=== PATIENT | female | born 1940 | race Caucasian/White ===

== ENCOUNTER 2017-02-05 16:27 | Observation (INO) | payer OTHER ==
[2017-02-05] MEDS ORDERED: NS 1,000 ML IV ONE (16:40)
[2017-02-05] MEDS ORDERED: ONDANSETRON 4 MG/2 ML VIAL IVP ONE (16:40)
[2017-02-05] MEDS ORDERED: ONDANSETRON 4 MG/2 ML VIAL ONE (16:41)
--- NOTE | 2017-02-05 16:41 | EDPHY ---
H & P Time Seen by Provider: 02/05/17 16:40 HPI/ROS: CHIEF COMPLAINT: Vomiting HISTORY OF PRESENT ILLNESS: This patient is a 76 year old female who presents to the Emergency Department complaining of persistent nausea and vomiting over the past five days. She reports associated lethargy worsening over that time as well. She has had difficulty tolerating food or drink and presents today because she is feeling extremely weak. She complains of mild dizziness; her family reports that she has needed help walking around so as not to fall. She denies abdominal pain, diarrhea, or fever or chills. No urinary complaints. Nobody else in her house is sick. She denies history of similar episodes in the past. REVIEW OF SYSTEMS: Constitutional: +generalized weakness, no fever, no chills Eyes: No visual changes ENT: No sore throat Respiratory: No cough, no shortness of breath Cardiac: No chest pain Gastrointestinal: As in HPI Genitourinary: No hematuria, no dysuria Musculoskeletal: No leg pain or swelling Skin: No rash Neurological: +dizziness, no headache, no numbness, no focal weakness Psychiatric: No depression Past Medical/Surgical History: 1. Thoracic aneurysm repair 2. Abdominal aortic aneurysm 3. COPD 4. CAD with CABG x3 5. History of lung cancer (2001) with s/p lobectomy Normal colonoscopy in 2016. Social History: Former smoker Daughter and at bedside Smoking Status: Former smoker Physical Exam: General Appearance: Alert, smiling, non-toxic appearing, no distress Eyes: Pupils equal and round, no conjunctival pallor or injection ENT, Mouth: Mucous membranes moist Neck: Normal inspection Respiratory: Lungs are clear to auscultation Cardiovascular: Regular rate and rhythm Gastrointestinal: Abdomen is soft and non- tender Neurological: A&O, nonfocal, normal gait Skin: Warm and dry, no rash Extremities: Nontender, no pedal edema Psychiatric: Mood and affect normal Constitutional: Initial Vital Signs Temperature (C) 36.7 C 02/05/17 16:30 Heart Rate 56 L 02/05/17 16:30 Respiratory Rate 16 02/05/17 16:30 Blood Pressure 150/72 H 02/05/17 16:30 O2 Sat (%) 95 02/05/17 16:30 O2 Delivery Mode Room Air Allergies/Adverse Reactions: No Known Allergies Allergy (Verified 02/05/17 17:34) Home Medications: Medication Instructions Recorded Ascorbic Acid [Vitamin C] 1,000 mg PO DAILY 03/20/15 Aspirin [Aspirin 81mg (*)] 81 mg PO DAILY18 03/20/15 Atorvastatin Calcium [Lipitor 40 40 mg PO DAILY18 03/20/15 mg (*)] Cholecalciferol Vit D3 [Vitamin D3 1,000 units PO DAILY 03/20/15 (*)] Herbals/Supplements -Info Only 1 ea PO DAILY 03/20/15 Losartan Potassium [Cozaar 50 mg 50 mg PO DAILY 03/20/15 (*)] Potassium Cl [Klor-Con 20 meq (*)] 20 meq PO DAILY 03/20/15 Raloxifene HCl [Evista] 60 mg PO DAILY 03/20/15 Naproxen Sod/Diphenhydramine 1 each PO HS PRN 02/05/17 [Aleve Pm Caplet] Ondansetron Odt [Zofran Odt 4 mg 4 mg PO Q4HRS PRN #30 tab 02/06/17 (*)] Medical Decision Making - Diagnostics EKG Interpretation: EKG interpreted by me reveals sinus bradycardia, rate 45; poor R wave progression; diffuse T wave abnormalities. Imaging Results: CT abd/pelvis: cholelithiasis, mild gastritis Imaging: Discussed imaging studies w/ jewel diameter gauger Radiologist ED Course/Re-evaluation: This 76 year old female presents with five days of nausea and vomiting and associated lethargy and generalized weakness. She is alert and well-appearing at time of exam. There are no abnormal findings on exam; abdomen is benign. I discussed with her the plan to proceed with labs and EKG here in the ED and ultimate admission given her generalized weakness and age. She is agreeable to this. IV established. 4mg IV Zofran and 1L IV NS administered. Labs reviewed and are unremarkable. Will proceed with CT of the abdomen and pelvisto r/o SBO. 1714: Consultation with Dr. Phillip Harding, hospitalist, who accepts admission. Differential Diagnosis: The differential diagnosis for the patient's nausea and vomiting included but was not limited to SBO, cholecystitis, severe dehydration, gastroenteritis, gastritis, appendicitis, and medication side effect. - Data Points Laboratory Results: Laboratory Results 02/05/17 16:45 02/05/17 16:45 Medications Given: Discontinued Medications Ascorbic Acid (Vitamin C) 1,000 mg PO DAILY [facility] Stop: 08/05/17 08:59 Last Admin: 02/06/17 11:20 Dose: 1,000 mg Cholecalciferol (Vitamin D) 1,000 units PO DAILY [facility] Stop: 08/05/17 08:59 Last Admin: 02/06/17 11:23 Dose: Not Given Enoxaparin Sodium (Lovenox) 40 mg SC DAILY [facility] Stop: 08/05/17 08:59 Last Admin: 02/06/17 11:23 Dose: Not Given Sodium Chloride (Ns) 1,000 mls @ 0 mls/hr IV ONCE ONE PRN Reason: Wide Open Stop: 02/05/17 16:41 Last Admin: 02/05/17 16:52 Dose: 1,000 mls Sodium Chloride (Ns) 1,000 mls @ 100 mls/hr IV CONT [facility] Stop: 08/04/17 18:29 Last Admin: 02/05/17 19:25 Dose: 1,000 mls Losartan Potassium (Cozaar) 50 mg PO DAILY [facility] Stop: 08/05/17 08:59 Last Admin: 02/06/17 11:23 Dose: Not Given Ondansetron HCl (Zofran) 4 mg IVP EDNOW ONE Stop: 02/05/17 16:41 Last Admin: 02/05/17 16:52 Dose: 4 mg Pantoprazole Sodium (Protonix) 40 mg PO DAILY [facility] Stop: 08/05/17 08:59 Last Admin: 02/06/17 11:24 Dose: Not Given Pantoprazole Sodium (Protonix) 40 mg PO ONCE ONE Stop: 02/05/17 19:54 Last Admin: 02/05/17 20:17 Dose: 40 mg Potassium Chloride (Klor-Con) 40 meq PO ONCE ONE Stop: 02/06/17 12:07 Last Admin: 02/06/17 12:16 Dose: 40 meq Raloxifene HCl (Evista) 60 mg PO DAILY [facility] Stop: 08/05/17 08:59 Last Admin: 02/06/17 11:24 Dose: Not Given Senna/Docusate Sodium (Senokot-S) 1 - 2 tab PO BID [facility]LOS PRN Reason: Protocol Stop: 08/04/17 20:59 Last Admin: 02/06/17 11:24 Dose: Not Given Departure - Departure Disposition: [facility] Acute Clinical Impression: Dehydration, Generalized weakness Vomiting Qualifiers: Vomiting type: unspecified Vomiting Intractability: non-intractable Nausea presence: with nausea Qualified Code(s): R11.2 - Nausea with vomiting, unspecified Condition: Fair Report Scribed for: Margarita Souza Report Scribed by: Sheba Guo Date of Report: 02/05/17 Time of Report: 16:41 Physician Review and Approval Statement: 02/05/17 16:41 Portions of this note were transcribed by a medical chemist. I personally performed a history, physical exam, medical decision making, and confirmed accuracy of information the transcribed note.
[2017-02-05 16:53] LABS: % IMMATURE GRANULYOCYTES 0.5 % (0.0-1.1); ABSOLUTE IMMATURE GRANULOCYTES 0.03 10^3/uL (0.00-0.10); ADD DIFF? NO; ADD MORPH? NO; ADD SCAN? NO; ATYPICAL LYMPHOCYTE FLAG 10 (0-99); FRAGMENT RBC FLAG 0 (0-99); HEMATOCRIT 42.4 % (38.0-47.0); HEMOGLOBIN 14.1 g/dL (12.6-16.3); LEFT SHIFT FLG 0 (0-99); LIPEMIA HEMOLYSIS FLAG 80 (0-99); MEAN CELL HEMOGLOBIN 31.5 pg (27.9-34.1); MEAN CELL HEMOGLOBIN CONCENTR. 33.3 g/dL (32.4-36.7); MEAN CELL VOLUME 94.6 fL (81.5-99.8); MEAN PLATELET VOLUME 8.7 fL (8.7-11.7); PLATELET CLUMPS FLAG 0 (0-99); PLATELET COUNT 396 10^3/uL (150-400); RED BLOOD CELL COUNT 4.48 10^6/uL (4.18-5.33); RED CELL DISTRIBUTION WIDTH 13.2 % (11.5-15.2)
--- NOTE | 2017-02-05 17:03 | CPEKG ---
Heart Rate: 45 RR Interval: 1333 P-R Interval: 192 QRSD Interval: 88 QT Interval: 524 QTC Interval: 454 P [place]: 0 QRS [place]: 14 T Wave [place]: -14 EKG Severity - ABNORMAL ECG - EKG Impression: SINUS BRADYCARDIA EKG Impression: PROBABLE LEFT ATRIAL ABNORMALITY EKG Impression: BORDERLINE R WAVE PROGRESSION, ANTERIOR LEADS EKG Impression: BORDERLINE T ABNORMALITIES, DIFFUSE LEADS Electronically Signed By: Margarita Souza 05-Feb-2017 21:05:30
[2017-02-05 17:06] LABS: ALANINE AMINOTRANSFERASE 36 IU/L (9-52); ALBUMIN 4.4 g/dL (3.5-5.0); ALKALINE PHOSPHATASE 68 IU/L (38-126); ANION GAP 9 mEq/L (8-16); ASPARTATE AMINOTRANSFERASE 32 IU/L (14-46); BILIRUBIN-CONJUGATED 0.2 mg/dL (0.0-0.5); BILIRUBIN-UNCONJUGATED 0.8 mg/dL (0.0-1.1); CALCIUM 9.8 mg/dL (8.5-10.4); CARBON DIOXIDE 28 mEq/l (22-31); CHLORIDE 99 mEq/L (97-110); CREATININE 0.8 mg/dL (0.6-1.0); GLOMERULAR FILTRATION RATE > 60; GLUCOSE 118 mg/dL (70-100); POTASSIUM 3.5 mEq/L (3.5-5.2); SODIUM 136 mEq/L (134-144); TOTAL PROTEIN 7.5 g/dL (6.3-8.2)
[2017-02-05] MEDS ORDERED: IOPAMIDOL (ISOVUE-300) 100 ML BTL ONE (17:22)
[2017-02-05] MEDS ORDERED: ONDANSETRON DISINTEGRATING 4 MG TAB PO PRN (18:28)
[2017-02-05] MEDS ORDERED: ACETAMINOPHEN 325 MG TAB PO PRN (18:28)
[2017-02-05] MEDS ORDERED: ONDANSETRON 4 MG/2 ML VIAL IVP PRN (18:28)
[2017-02-05] MEDS ORDERED: oxyCODONE IR 5 MG TAB PO PRN (18:28)
[2017-02-05] MEDS ORDERED: PROMETHAZINE HCL 25 MG TAB PO PRN (18:28)
[2017-02-05] MEDS ORDERED: NS 1,000 ML IV SCH (18:30)
[2017-02-05] MEDS ORDERED: LACTULOSE 20 GM/30 ML UDCUP PO PRN (18:47)
[2017-02-05] MEDS ORDERED: MAGNESIUM HYDROXIDE 30 ML UDCUP PO PRN (18:47)
[2017-02-05] MEDS ORDERED: POLYETHYLENE GLYCOL 3350 17 GM PKT PO PRN (18:47)
[2017-02-05] MEDS ORDERED: BISACODYL 10 MG SUPP PR PRN (18:47)
[2017-02-05] MEDS ORDERED: PANTOPRAZOLE SODIUM 40 MG TAB PO ONE (19:53)
[2017-02-05] MEDS: SENNOSIDES/DOCUSATE SODIUM TAB PO SCH (20:16)
--- NOTE | 2017-02-05 20:51 | GHP ---
[f rep st] HISTORY AND PHYSICAL DATE OF ADMISSION: 02/05/2017 CHIEF COMPLAINT: Nausea with vomiting. HISTORY: This is a 76-year-old female, who has a past medical history of coronary artery disease, s tatus post CABG many years ago, as well as known stable AAA and lung cancer, who presents with 5 day s of nausea and vomiting. The patient notes that her symptoms mostly are nausea with only small tesfaye unts of vomiting, but she has been having vomiting daily for the last 5 days. This has been associa jason with fatigue and generalized malaise, and per her daughter present at bedside, she has hardly be en out of bed over the last 5 days. She is also reportedly not really eating or drinking hardly any thing over the last 5 days. She notes that when she vomits, it mostly retching with a little bit of phlegm sometimes also coming out, but nothing substantial, and no evidence of blood or bile in her vomit. She has not had any changes in her bowel habits, and does admit that she has some component of chronic constipation, but does not feel that this has been worse than usual. She believes her la st bowel movement was yesterday. She has had no associated abdominal pain. She has not had similar symptoms in the past that she can recall. She denies fevers or chills. She denies any dysuria or other urinary changes. She has not had chest pain. It is noted since she has arrived in the hospit al that her heart rate has been in the 40s and in review of past records, it seems that her usual re sting heart rate is closer to the 90s. She, herself, notes she has been unaware of any change in he r heart rate, and has not had any recent medication changes. PAST MEDICAL HISTORY: 1. Coronary artery disease. 2. AAA, last measured at 3 x 3 cm. 3. Lung cancer. 4. Peripheral vascular disease. 5. Hypertension. 6. Hyperlipidemia. 7. Chronic constipation. PAST SURGICAL HISTORY: Includes CABG and lobectomy. FAMILY HISTORY: Reviewed and noncontributory. SOCIAL HISTORY: The patient has a remote tobacco use history. She is and has 3 children. Her and herself recently moved in with her daughter, who both are present at bedside. REVIEW OF SYSTEMS: A 10-point review of systems obtained, negative except as per HPI. MEDICATIONS: Include: 1. Naproxen. 2. . 3. Potassium. 4. Losartan. 5. Cholecalciferol. 6. Atorvastatin. 7. Atenolol. 8. Aspirin. 9. Ascorbic acid. ALLERGIES: No known drug allergies. PHYSICAL EXAMINATION: VITAL SIGNS: BP 159/63, heart rate 47, respiratory rate 12, O2 sat is 89% on room air. Temperature 36.3. GENERAL APPEARANCE: This is an elderly, female. She is aw matti and alert. She is in mild distress. EYES: Anicteric. HEENT: Oropharynx is clear. Mucous me mbranes are slightly dry. CARDIOVASCULAR: Bradycardic to the 40s. No murmurs, rubs, or gallops. PULMONARY: CTA bilaterally to anterior exam. Normal work of breathing. ABDOMEN: Soft, nontender. Bowel sounds are present. EXTREMITIES: No clubbing, cyanosis, or edema. SKIN: Warm dry well pe rfused. NEUROLOGIC/PSYCHIATRIC: Oriented, appropriate, pleasant. LABORATORY DATA: CBC is completely unremarkable. Chemistry notable for BUN of 24, down from 31 at last check. Her creatinine is 0.8, which appears stable. Glucose of 118. Lipase of 349. LFTs are normal. Abdominal CT, personally reviewed and interpreted, shows possible mild gastritis without evidence of small bowel obstruction, cholelithiasis without cholecystitis or bile duct dilatation, stable AAA c ompared to 10/23/2015, and constipation. EKG, personally reviewed and interpreted, shows sinus bradycardia with a rate of 45. There is diffu se T-wave flattening and borderline R-wave progression anteriorly. When compared to prior, there is no real change, other than the rate being slower. ASSESSMENT/PLAN: This is a 76-year-old female, past medical history of coronary artery disease, as well as abdominal aortic aneurysm and peripheral vascular disease, presenting with persistent nausea and vomiting for the last 5 days. 1. Nausea, vomiting. At this point, etiology is unclear. Differential would include primary gastr ointestinal etiology, such as gastritis noted on CT versus constipation versus less likely bowel isc hemia given no abdominal pain. We will provide proton pump inhibitor, check a lactate level, and st art bowel protocol. Other potential etiology would be symptomatic bradycardia given new onset heart rate in the 40s and associated nausea and vomiting. She does have a previous EKG with heart rate i n the 50s and also some associated pauses and was having similar symptoms at that time that were ult imately thought to be gastrointestinal in nature. At this point, we will cycle her troponins. Isamar tor her on telemetry and obtain an echocardiogram in the morning. We will also hold her atenolol. We will provide p.r.n. Zofran and Phenergan for symptomatic management. 2. Bradycardia. Again, as per above, she does have EKG changes consisting of new or worsening albert ycardia, last hospitalization with similar symptoms, and also noted to be bradycardic. Certainly, s he could be having some vagal, a fact of her chronic nausea, but also certainly her nausea could be related rather to her bradycardia, and at this point, it is difficult to determine which is which. Outside of nausea, she does not have any real gastrointestinal complaints to suggest a primary gastr ointestinal etiology, raising my concern for possible symptomatic bradycardia. Her woodwind instruments inspector is Dr. Hawthorne. Again, as per above, we will trend troponins and monitor on telemetry with repeat EKG i n the morning. 3. Coronary artery disease. We will continue her home medications, other than her atenolol. Again , ischemic workup as per above. 4. Abdominal aortic aneurysm. This has been stable on repeat imaging today compared to 1 year ago. 5. Hypertension. Continue her home medications, other than her atenolol, which will be held given her bradycardia. DISPOSITION: Observation status. Will likely need less than a 48-hour stay for evaluation and jerrica ora of above, though, given that her workup is not yet complete, she may, in fact, require inpati ent stay. Patient is new to my care. Old records reviewed and summarized as per HPI and Past Medical History. Care plan reviewed with ER physician, including plans for overnight observation. /[id number]/MODL
[2017-02-06 07:51] LABS: % IMMATURE GRANULYOCYTES 1.2 % (0.0-1.1); ABSOLUTE IMMATURE GRANULOCYTES 0.06 10^3/uL (0.00-0.10); ADD DIFF? NO; ADD MORPH? NO; ADD SCAN? NO; ATYPICAL LYMPHOCYTE FLAG 10 (0-99); FRAGMENT RBC FLAG 10 (0-99); HEMATOCRIT 35.4 % (38.0-47.0); HEMOGLOBIN 11.7 g/dL (12.6-16.3); LEFT SHIFT FLG 10 (0-99); LIPEMIA HEMOLYSIS FLAG 80 (0-99); MEAN CELL HEMOGLOBIN 31.8 pg (27.9-34.1); MEAN CELL HEMOGLOBIN CONCENTR. 33.1 g/dL (32.4-36.7); MEAN CELL VOLUME 96.2 fL (81.5-99.8); PLATELET CLUMPS FLAG 0 (0-99); PLATELET COUNT 336 10^3/uL (150-400); RED BLOOD CELL COUNT 3.68 10^6/uL (4.18-5.33); RED CELL DISTRIBUTION WIDTH 13.2 % (11.5-15.2)
[2017-02-06 08:14] LABS: ANION GAP 9 mEq/L (8-16); CALCIUM 8.7 mg/dL (8.5-10.4); CARBON DIOXIDE 24 mEq/l (22-31); CHLORIDE 104 mEq/L (97-110); CREATININE 0.8 mg/dL (0.6-1.0); GLOMERULAR FILTRATION RATE > 60; GLUCOSE 75 mg/dL (70-100); MAGNESIUM 1.9 mg/dL (1.6-2.3); POTASSIUM 3.3 mEq/L (3.5-5.2); SODIUM 137 mEq/L (134-144)
[2017-02-06 08:29] VITALS: BP 149/48; PULSE 48; RESP 24; TEMP 98.1; O2SAT 91
[2017-02-06] MEDS ORDERED: ENOXAPARIN 40 MG/0.4 ML SYR SC SCH (09:00)
[2017-02-06] MEDS ORDERED: ATENOLOL 50 MG TAB PO SCH (09:00)
[2017-02-06] MEDS ORDERED: RALOXIFENE HCL 60 MG TAB PO SCH (09:00)
[2017-02-06] MEDS ORDERED: CHOLECALCIFEROL VIT D3 1,000 UNITS TAB PO SCH (09:00)
[2017-02-06] MEDS ORDERED: LOSARTAN POTASSIUM 50 MG TAB PO SCH (09:00)
[2017-02-06] MEDS ORDERED: ASCORBIC ACID 500 MG TAB PO SCH (09:00)
[2017-02-06] MEDS ORDERED: PANTOPRAZOLE SODIUM 40 MG TAB PO SCH (09:00)
[2017-02-06 10:46] LABS: COLOR YELLOW; LEUKOCYTE ESTERASE,URINE TRACE (NEGATIVE); NITRITE,URINE NEGATIVE (NEGATIVE)
[2017-02-06 10:49] LABS: MUCUS TRACE /lpf (NONE-1+)
[2017-02-06 10:50] LABS: RBC,URINE NONE SEEN /hpf (0-3)
--- NOTE | 2017-02-06 11:16 | PDCARCONS ---
Cardiology Consult Reason for Consult: Bradycardia. Nausea Chief Complaint: Nausea Requesting Physician: Dr. Celeste Rodriguez History of Present Illness: 76 yr F with h/o CABG, AAA, R lung lobectomy due to lung Ca. Presented with nausea which has since resolved. Was noted to have HR in 40s, I was asked to comment if nausea and bradycardia were related. She denies chest pain. No syncope. History Information - Allergies/Home Medication List Allergies/Adverse Reactions: No Known Allergies Allergy (Verified 02/05/17 17:34) Home Medications: Ascorbic Acid [Vitamin C] 1,000 mg PO DAILY 03/20/15 [Last Taken 03/19/15 08:00] Aspirin [Aspirin 81mg (*)] 81 mg PO DAILY18 03/20/15 [Last Taken 03/19/15 18:00] Atorvastatin Calcium [Lipitor 40 mg (*)] 40 mg PO DAILY18 03/20/15 [Last Taken 03/19/15 18:00] Cholecalciferol Vit D3 [Vitamin D3 (*)] 1,000 units PO DAILY 03/20/15 [Last Taken 03/19/15 08:00] Herbals/Supplements -Info Only 1 ea PO DAILY 03/20/15 [Last Taken 03/19/15 08:00 ] Losartan Potassium [Cozaar 50 mg (*)] 50 mg PO DAILY 03/20/15 [Last Taken 08:00] Potassium Cl [Klor-Con 20 meq (*)] 20 meq PO DAILY 03/20/15 [Last Taken 08:00] Raloxifene HCl [Evista] 60 mg PO DAILY 03/20/15 [Last Taken 03/19/15 08:00] Naproxen Sod/Diphenhydramine [Aleve Pm Caplet] 1 each PO HS PRN 02/05/17 [Last Taken Unknown] I have personally reviewed and updated: family history, medical history, social history, surgical history - Past Medical History coronary artery disease, hypertension - Surgical History Reports: coronary bypass surgery - Social History Smoking Status: Former smoker Physical Exam Temp Pulse Resp BP Pulse Ox 36.7 C 48 L 24 H 149/48 H 91 L 02/06/17 08:28 02/06/17 08:28 02/06/17 08:28 02/06/17 08:28 02/06/17 08:28 Constitutional: no apparent distress, appears nourished Eyes: PERRL, EOMI Ears, Nose, Mouth, Throat: moist mucous membranes, hearing normal Cardiovascular: regular rate and rhythym, bradycardia Respiratory: no respiratory distress Neurologic: AAOx3 Psychiatric: interacting appropriately, not anxious, thought process linear Lab and Imaging 02/06/17 04:52 02/06/17 04:52 WBC 4.92 10^3/uL (3.80-9.50) 02/06/17 04:52 RBC 3.68 10^6/uL (4.18-5.33) L 02/06/17 04:52 Hgb 11.7 g/dL (12.6-16.3) L 02/06/17 04:52 Hct 35.4 % (38.0-47.0) L 02/06/17 04:52 MCV 96.2 fL (81.5-99.8) 02/06/17 04:52 MCH 31.8 pg (27.9-34.1) 02/06/17 04:52 MCHC 33.1 g/dL (32.4-36.7) 02/06/17 04:52 RDW 13.2 % (11.5-15.2) 02/06/17 04:52 Plt Count 336 10^3/uL (150-400) D 02/06/17 04:52 MPV 9.0 fL (8.7-11.7) 02/06/17 04:52 Neut % (Auto) 74.0 % (39.3-74.2) 02/06/17 04:52 Lymph % (Auto) 13.0 % (15.0-45.0) L 02/06/17 04:52 [place] % (Auto) 9.6 % (4.5-13.0) 02/06/17 04:52 Eos % (Auto) 1.6 % (0.6-7.6) 02/06/17 04:52 Baso % (Auto) 0.6 % (0.3-1.7) 02/06/17 04:52 Nucleat RBC Rel Count 0.0 % (0.0-0.2) 02/06/17 04:52 Absolute Neuts (auto) 3.64 10^3/uL (1.70-6.50) 02/06/17 04:52 Absolute Lymphs (auto) 0.64 10^3/uL (1.00-3.00) L 02/06/17 04:52 Absolute Monos (auto) 0.47 10^3/uL (0.30-0.80) 02/06/17 04:52 Absolute Eos (auto) 0.08 10^3/uL (0.03-0.40) 02/06/17 04:52 Absolute Basos (auto) 0.03 10^3/uL (0.02-0.10) 02/06/17 04:52 Absolute Nucleated RBC 0.00 10^3/uL (0-0.01) 02/06/17 04:52 Immature Gran % 1.2 % (0.0-1.1) H 02/06/17 04:52 Immature Gran # 0.06 10^3/uL (0.00-0.10) 02/06/17 04:52 VBG Lactic Acid 1.0 mmol/L (0.7-2.1) 02/05/17 21:32 Sodium 137 mEq/L (134-144) 02/06/17 04:52 Potassium 3.3 mEq/L (3.5-5.2) L 02/06/17 04:52 Chloride 104 mEq/L (97-110) 02/06/17 04:52 Carbon Dioxide 24 mEq/l (22-31) 02/06/17 04:52 Anion Gap 9 mEq/L (8-16) 02/06/17 04:52 BUN 20 mg/dL (7-23) 02/06/17 04:52 Creatinine 0.8 mg/dL (0.6-1.0) 02/06/17 04:52 Estimated GFR > 60 02/06/17 04:52 Glucose 75 mg/dL (70-100) 02/06/17 04:52 Calcium 8.7 mg/dL (8.5-10.4) 02/06/17 04:52 Phosphorus 3.2 mg/dL (2.5-4.5) 02/06/17 04:52 Magnesium 1.9 mg/dL (1.6-2.3) 02/06/17 04:52 Total Bilirubin 1.0 mg/dL (0.1-1.4) 02/05/17 16:45 Conjugated Bilirubin 0.2 mg/dL (0.0-0.5) 02/05/17 16:45 Unconjugated Bilirubin 0.8 mg/dL (0.0-1.1) 02/05/17 16:45 AST 32 IU/L (14-46) 02/05/17 16:45 ALT 36 IU/L (9-52) 02/05/17 16:45 Alkaline Phosphatase 68 IU/L (38-126) 02/05/17 16:45 Troponin I < 0.012 ng/mL (0-0.034) 02/06/17 10:15 Total Protein 7.5 g/dL (6.3-8.2) 02/05/17 16:45 Albumin 4.4 g/dL (3.5-5.0) 02/05/17 16:45 Lipase 349.0 IU/L (23-300) H 02/05/17 16:45 Urine Color YELLOW 02/06/17 03:05 Urine Appearance HAZY 02/06/17 03:05 Urine pH 5.0 (5.0-7.5) 02/06/17 03:05 Ur Specific [place] > 1.035 (1.002-1.030) H 02/06/17 03:05 Urine Protein NEGATIVE (NEGATIVE) 02/06/17 03:05 Urine Ketones TRACE (NEGATIVE) H 02/06/17 03:05 Urine Blood NEGATIVE (NEGATIVE) 02/06/17 03:05 Urine Nitrate NEGATIVE (NEGATIVE) 02/06/17 03:05 Urine Bilirubin NEGATIVE (NEGATIVE) 02/06/17 03:05 Urine Urobilinogen 2.0 EU (0.2-1.0) H 02/06/17 03:05 Ur Leukocyte Esterase TRACE (NEGATIVE) H 02/06/17 03:05 Urine RBC NONE SEEN /hpf (0-3) 02/06/17 03:05 Urine WBC 5-10 /hpf (0-3) H 02/06/17 03:05 Ur Epithelial Cells TRACE /lpf (NONE-1+) 02/06/17 03:05 Urine Mucus TRACE /lpf (NONE-1+) 02/06/17 03:05 Ur Culture Indicated? INDICATED (NI) H 02/06/17 03:05 Urine Glucose NEGATIVE (NEGATIVE) 02/06/17 03:05 Visualized and Interpreted EKG results: Yes EKG additional interpertation: Sinus bradycardia Telemetry: Sinus bradycardia A/P Assessment: 1. CAD sp CABG 2. Ex smoker - COPD, R lung lobectomy 3. Nausea 4. Sinus bradycardia Plan: 1. Has r/o for SD by serial troponin, no ECG changes s/o ACS 2. Has bradycardia, would hold BB at this time and do Cardionet as outpatient ( 2 weeks) + f.u. with Dr. Hawthorne following. d.w. her, her family and Dr. Rodriguez that if we want to continue BB, we may have to place a permanent pacemaker, but will defer that decision for 2-4 weeks 3. Hgb and K are low, she has recd at least 1.5 L of fluids - Dr. Rodriguez to address
--- NOTE | 2017-02-06 11:17 | CPEKG ---
Heart Rate: 48 RR Interval: 1250 P-R Interval: 152 QRSD Interval: 86 QT Interval: 460 QTC Interval: 411 P [place]: -56 QRS [place]: 1 T Wave [place]: -6 EKG Severity - OTHERWISE NORMAL ECG - EKG Impression: SINUS OR ECTOPIC ATRIAL BRADYCARDIA Electronically Signed By: Dasha Paulson 06-Feb-2017 19:33:58
[2017-02-06] MEDS: SENNOSIDES/DOCUSATE SODIUM TAB PO SCH (11:24)
[2017-02-06] MEDS ORDERED: POTASSIUM CL 20 MEQ TAB PO ONE (12:06)
--- NOTE | 2017-02-06 15:53 | GDS ---
[f rep st] DISCHARGE SUMMARY DISCHARGE DIAGNOSES: Include: 1. Nausea, etiology unclear. 2. Bradycardia. 3. Coronary artery disease. 4. Abdominal aortic aneurysm, clinically followed. 5. History of lung cancer. 6. Peripheral vascular disease. 7. Hypertension. 8. Hyperlipidemia. 9. Chronic constipation. HISTORY OF PRESENT ILLNESS: A 76-year-old female with a known history of coronary artery disease, swapnil delcid presents with complaints of nausea and vomiting. For details of the patient's initial presentati on, please see the history and physical dated 02/05/2017. CONSULTATIVE SERVICES: Include Cardiology. PROCEDURES: CT abdomen done 02/05/2017, shows no small bowel obstruction, mild gastritis, and a sta ble AAA. HOSPITAL COURSE BY ISSUE: 1. Nausea and vomiting. Suspected potentially gastroenteritis; however, the patient did not have d iarrhea. She was treated with fluid resuscitation, antiemetics, and had resolution of her nausea th e morning after presentation, tolerated a regular diet, and is being discharged home with rachel fairchild. Patient's objective workup was negative, including abdominal imaging, urinalysis, and basic la boratories. Urine culture was sent and is pending, but the patient had no urinary symptoms. The pa sarmad should follow with her primary care provider for recurrence of symptoms. 2. Bradycardia. The patient presented on moderate-dose atenolol with heart rates in the low 40s. We were concerned this may be contributing to her symptoms of nausea. The patient was seen by Dr. Manuel flynn from Cardiology, who recommended that we continue holding the beta delisa. This was done at adm ission. A 2-week quality assurance monitor will be placed post disposition. She will follow in the outpatien t setting with her invoice coder, Dr. Hawthorne. 3. Coronary artery disease. Again, patient did not have chest pain. She had normal troponins. We are continuing her cardiac regimen minus the atenolol at this time. She will be followed closely trey Hawthorne post disposition. MEDICATIONS AT THE TIME OF DISPOSITION: Please reference med rec printed on 02/06/2017. FOLLOWUP APPOINTMENTS: Include tomorrow to get set up with a 2-week quality assurance monitor, as well as an appointment with Dr. Hawthorne in the next 2-4 weeks. I spent greater than 30 minutes in the planning and coordination of this discharge. /[id number]/MODL
[2017-02-06] MEDS ORDERED: ATORVASTATIN CALCIUM 40 MG TAB PO SCH (18:00)
[2017-02-06] MEDS ORDERED: ASPIRIN 81 MG CHEWABLE TAB PO SCH (18:00)
== END 2017-02-06 12:36 | disposition home or self-care (01) ==
LOC: INTOOBSV 17:13 → F3E 18:07
PROVIDERS: ADMIT Internal Medicine; ATTEND Hospitalist
DX: R11.2 Nausea with vomiting, unspecified (principal); R00.1 Bradycardia, unspecified; I25.10 Atherosclerotic heart disease of native coronary artery without angina pectoris; I71.4 Abdominal aortic aneurysm, without rupture; I10 Essential (primary) hypertension; E78.5 Hyperlipidemia, unspecified; I73.9 Peripheral vascular disease, unspecified; J44.9 Chronic obstructive pulmonary disease, unspecified; Z95.1 Presence of aortocoronary bypass graft; Z85.118 Personal history of other malignant neoplasm of bronchus and lung; Z87.891 Personal history of nicotine dependence; Z90.2 Acquired absence of lung [part of]; K59.09 Other constipation
CPT/HCPCS: 74177; 93005; G0378; J1650; J2405; Q9967; 96374

== ENCOUNTER → 2017-02-10 | Outpatient (CLI) | payer OTHER | LOC: BHFA 13:15 | PROVIDERS: ATTEND Internal Medicine Cardiovascular Disease | DX: I48.91 Unspecified atrial fibrillation (principal); I25.810 Atherosclerosis of coronary artery bypass graft(s) without angina pectoris; I71.4 Abdominal aortic aneurysm, without rupture; E78.00 Pure hypercholesterolemia, unspecified ==

== ENCOUNTER 2017-02-15 02:23 | Inpatient (IN) | payer OTHER ==
--- NOTE | 2017-02-15 02:35 | CPEKG ---
Heart Rate: 129 RR Interval: 465 P-R Interval: 168 QRSD Interval: 72 QT Interval: 272 QTC Interval: 399 P [place]: 39 QRS [place]: 86 T Wave [place]: 224 EKG Severity - ABNORMAL ECG - EKG Impression: SINUS TACHYCARDIA EKG Impression: BORDERLINE RIGHT AXIS DEVIATION EKG Impression: NONSPECIFIC REPOL ABNORMALITY, DIFFUSE LEADS Electronically Signed By: Amado Antunez 15-Feb-2017 04:47:28
[2017-02-15] MEDS ORDERED: ACETAMINOPHEN 500 MG TAB PO ONE (02:50)
[2017-02-15 02:54] LABS: % IMMATURE GRANULYOCYTES 0.5 % (0.0-1.1); ABSOLUTE IMMATURE GRANULOCYTES 0.04 10^3/uL (0.00-0.10); ADD DIFF? NO; ADD MORPH? NO; ADD SCAN? NO; ATYPICAL LYMPHOCYTE FLAG 0 (0-99); FRAGMENT RBC FLAG 0 (0-99); HEMATOCRIT 39.9 % (38.0-47.0); LEFT SHIFT FLG 0 (0-99); LIPEMIA HEMOLYSIS FLAG 80 (0-99); MEAN CELL HEMOGLOBIN 31.4 pg (27.9-34.1); MEAN CELL HEMOGLOBIN CONCENTR. 32.6 g/dL (32.4-36.7); MEAN CELL VOLUME 96.4 fL (81.5-99.8); MEAN PLATELET VOLUME 8.9 fL (8.7-11.7); PLATELET CLUMPS FLAG 0 (0-99); PLATELET COUNT 318 10^3/uL (150-400); RED BLOOD CELL COUNT 4.14 10^6/uL (4.18-5.33); RED CELL DISTRIBUTION WIDTH 13.1 % (11.5-15.2)
[2017-02-15 03:03] LABS: INR 1.06 (0.83-1.16); PROTIME(PATIENT) 13.7 SEC (12.0-15.0)
[2017-02-15 03:04] LABS: APTT 26.2 SEC (23.0-38.0)
[2017-02-15 03:11] LABS: ANION GAP 12 mEq/L (8-16); BILIRUBIN,TOTAL 0.8 mg/dL (0.1-1.4); CALCIUM 9.5 mg/dL (8.5-10.4); CARBON DIOXIDE 27 mEq/l (22-31); CHLORIDE 100 mEq/L (97-110); CREATININE 0.7 mg/dL (0.6-1.0); GLOMERULAR FILTRATION RATE > 60; GLUCOSE 133 mg/dL (70-100); POTASSIUM 3.6 mEq/L (3.5-5.2); SODIUM 139 mEq/L (134-144)
[2017-02-15 03:23] LABS: TROPONIN I < 0.012 ng/mL (0-0.034)
--- NOTE | 2017-02-15 03:35 | EDPHY ---
H & P Time Seen by Provider: 02/15/17 02:31 HPI/ROS: HPI Cough, probable pneumonia, weakness. 76-year-old female by ambulance. This patient was at home. She lives with her in the basement of her daughter's house. Her son apparently had a pneumonia earlier in the week which she was hospitalized for him. He has had close contact with her. She then developed a cough about 3:00 p.m. this afternoon. This worsened through the evening. Her daughters reports that she had shaking chills and a worsening cough as of 3:00 a.m. this morning. She was too weak to get out of bed. Recent hospital admission here for nausea and vomiting. She had a short hospital stay. EMS reports room air pulse oximetry of 84%. ROS: Constitutional: As above. Eyes: No discharge. No changes in vision. ENT: No sore throat. No nasal congestion or rhinorrhea. Respiratory: As above. Cardiac: No chest pain, no palpitations. Gastrointestinal: No abdominal pain, no vomiting, no diarrhea. Genitourinary: No hematuria. No dysuria or increased frequency with urination. Musculoskeletal: No back pain. No neck pain. No myalgias or arthralgias. Skin: No rashes. Neurological: No headache. No focal weakness or altered sensation. Past medical history: Coronary artery disease, AAA with last measurement 3.3 cm , lung cancer, peripheral vascular disease, hyperlipidemia, hypertension, chronic constipation, recent admission for nausea, vomiting and dehydration as discussed. Social history: Nonsmoker. As above. Here with daughter and currently. Physical Exam: General Appearance: Alert, intermittent wet sounding cough. This patient is responding to questions appropriately and in full sentences. This patient appears well-hydrated and well-nourished. Eyes: Pupils equal and round no pallor or injection. No lid edema, erythema or injection. Respiratory: There are no retractions, rhonchi bilaterally upper and middle lung evans worse on the left. Tachypnea at 24. Cardiovascular: Regular rate and rhythm. Tachycardia. No murmur appreciated. Gastrointestinal: Abdomen is soft and nontender, no masses, bowel sounds normal. No focal tenderness at McBurney's point. No Torre sign. Neurological: Motor sensory function is grossly intact. Cranial nerves are normal. Gait is normal. Skin: Warm and dry, no rashes. Musculoskeletal: Neck is supple and nontender. Extremities are symmetrical. No significant lower extremity edema. All joints range without pain or impingement. Psychiatric: No agitation. No depression. Database: EKG: EKG time is 2:31 a.m.; EKG shows a narrow complex normal sinus tachycardia with ventricular rate of 129. Borderline right axis deviation. The [place], QRS, QT intervals are within normal limits. There are no ST-T wave changes indicative of ischemic or injury pattern. No evidence of right heart strain. Interpreted by me. Imaging: Chest x-ray PA and lateral postoperative changes involving the right dora thorax with associated right lung volume loss. Probable right middle lobe and left basilar infiltrative process. Interpreted by me. Procedures: Emergency department course: IV placed, vital signs reviewed, based on tachycardia and tachypnea patient identified for initial sepsis protocol. IV fluids started, chest x-ray, blood cultures, EKG obtained. 2:50 a.m., patient's initial venous lactate is 2.1. Severe sepsis protocol with appropriate fluid bolus initiated at this time. 3:35 a.m., discussed case with on-call hospitalist, Dr. Rodriguez. Hospital- acquired pneumonia unlikely. Will treat for community-acquired pneumonia with IV azithromycin and IV ceftriaxone. Patient's remaining emergency department course under my care has been uneventful. Tachycardia has improved with fluid bolus. She has not been hypotensive in the emergency department. She was admitted to the hospitalist service in stable condition. Differential Diagnosis: The differential diagnosis on this patient includes but is not limited to pneumonia, sepsis, congestive heart failure, reactive airway disease, bronchitis. This represents a partial list of diagnoses considered. These considerations are based on history, physical exam, past history, reassessment and diagnostic testing. Smoking Status: Former smoker Constitutional: Initial Vital Signs Temperature (C) 96 C H 02/15/17 02:34 Heart Rate 123 H 02/15/17 02:34 Respiratory Rate 16 02/15/17 02:34 Blood Pressure 138/95 H 02/15/17 02:34 O2 Sat (%) 92 02/15/17 02:34 O2 Delivery Mode Room Air O2 (L/minute) 2 Allergies/Adverse Reactions: No Known Allergies Allergy (Verified 02/15/17 02:34) Home Medications: Medication Instructions Recorded Ascorbic Acid [Vitamin C] 1,000 mg PO DAILY 03/20/15 Aspirin [Aspirin 81mg (*)] 81 mg PO DAILY18 03/20/15 Atorvastatin Calcium [Lipitor 40 40 mg PO DAILY18 03/20/15 mg (*)] Cholecalciferol Vit D3 [Vitamin D3 1,000 units PO DAILY 03/20/15 (*)] Herbals/Supplements -Info Only 1 ea PO DAILY 03/20/15 Losartan Potassium [Cozaar 50 mg 50 mg PO DAILY 03/20/15 (*)] Potassium Cl [Klor-Con 20 meq (*)] 20 meq PO DAILY 03/20/15 Raloxifene HCl [Evista] 60 mg PO DAILY 03/20/15 Naproxen Sod/Diphenhydramine 1 each PO HS PRN 02/05/17 [Aleve Pm Caplet] Ondansetron Odt [Zofran Odt 4 mg 4 mg PO Q4HRS PRN #30 tab 02/06/17 (*)] Medical Decision Making - Data Points Laboratory Results: Laboratory Results 02/15/17 02:44 02/15/17 02:44 02/15/17 02/15/17 02/15/17 02:44 02:44 02:44 WBC RBC Hgb Hct MCV MCH MCHC RDW Plt Count MPV Neut % (Auto) Lymph % (Auto) Caswell % (Auto) Eos % (Auto) Baso % (Auto) Nucleat RBC Rel Count Absolute Neuts (auto) Absolute Lymphs (auto) Absolute Monos (auto) Absolute Eos (auto) Absolute Basos (auto) Absolute Nucleated RBC Immature Gran % Immature Gran # PT 13.7 SEC SEC (12.0-15.0) INR 1.06 (0.83-1.16) APTT 26.2 SEC SEC (23.0-38.0) VBG Lactic Acid 2.1 mmol/L mmol/L (0.7-2.1) Sodium 139 mEq/L mEq/L (134-144) Potassium 3.6 mEq/L mEq/L (3.5-5.2) Chloride 100 mEq/L mEq/L (97-110) Carbon Dioxide 27 mEq/l mEq/l (22-31) Anion Gap 12 mEq/L mEq/L (8-16) BUN 20 mg/dL mg/dL (7-23) Creatinine 0.7 mg/dL mg/dL (0.6-1.0) Estimated GFR > 60 Glucose 133 mg/dL H mg/dL (70-100) Calcium 9.5 mg/dL mg/dL (8.5-10.4) Total Bilirubin 0.8 mg/dL mg/dL (0.1-1.4) Troponin I < 0.012 ng/mL ng/mL (0-0.034) NT-Pro-B Natriuret Pep 781 pg/mL H pg/mL (0-450) 02/15/17 02:44 WBC 7.76 10^3/uL 10^3/uL (3.80-9.50) RBC 4.14 10^6/uL L 10^6/uL (4.18-5.33) Hgb 13.0 g/dL g/dL (12.6-16.3) Hct 39.9 % % (38.0-47.0) MCV 96.4 fL fL (81.5-99.8) MCH 31.4 pg pg (27.9-34.1) MCHC 32.6 g/dL g/dL (32.4-36.7) RDW 13.1 % % (11.5-15.2) Plt Count 318 10^3/uL 10^3/uL (150-400) MPV 8.9 fL fL (8.7-11.7) Neut % (Auto) 91.6 % H % (39.3-74.2) Lymph % (Auto) 4.9 % L % (15.0-45.0) Caswell % (Auto) 2.2 % L % (4.5-13.0) Eos % (Auto) 0.4 % L % (0.6-7.6) Baso % (Auto) 0.4 % % (0.3-1.7) Nucleat RBC Rel Count 0.0 % % (0.0-0.2) Absolute Neuts (auto) 7.11 10^3/uL H 10^3/uL (1.70-6.50) Absolute Lymphs (auto) 0.38 10^3/uL L 10^3/uL (1.00-3.00) Absolute Monos (auto) 0.17 10^3/uL L 10^3/uL (0.30-0.80) Absolute Eos (auto) 0.03 10^3/uL 10^3/uL (0.03-0.40) Absolute Basos (auto) 0.03 10^3/uL 10^3/uL (0.02-0.10) Absolute Nucleated RBC 0.00 10^3/uL 10^3/uL (0-0.01) Immature Gran % 0.5 % % (0.0-1.1) Immature Gran # 0.04 10^3/uL 10^3/uL (0.00-0.10) PT INR APTT VBG Lactic Acid Sodium Potassium Chloride Carbon Dioxide Anion Gap BUN Creatinine Estimated GFR Glucose Calcium Total Bilirubin Troponin I NT-Pro-B Natriuret Pep Departure - Departure Disposition: [facility] Inpatient Acute Clinical Impression: Pneumonia, Sepsis, Hypoxia Referrals: LUIS M SHARMA [Primary Care Provider] - As per Instructions
[2017-02-15] MEDS ORDERED: AZITHROMYCIN IV 500 MG in D5W 250 ML IV ONE (03:39)
[2017-02-15] MEDS ORDERED: ONDANSETRON DISINTEGRATING 4 MG TAB PO PRN ×2 (03:39→11:37)
[2017-02-15] MEDS ORDERED: ONDANSETRON 4 MG/2 ML VIAL IVP PRN (03:39)
[2017-02-15] MEDS ORDERED: NS 1,000 ML IV ONE (03:39)
[2017-02-15] MEDS ORDERED: ALBUTEROL 3 ML DEYVIAL IH PRN (03:39)
[2017-02-15] MEDS ORDERED: ACETAMINOPHEN 325 MG TAB PO PRN (03:39)
[2017-02-15] MEDS ORDERED: NS 1,600 ML IV ONE (03:40)
[2017-02-15] MEDS: IPRATROPIUM/ALBUTEROL 3 ML DEYVIAL IH SCH ×4 (06:25→21:50)
--- NOTE | 2017-02-15 08:05 | GHP ---
[f rep st] HISTORY AND PHYSICAL DATE OF ADMISSION: 02/15/2017 CHIEF COMPLAINT: Cough and shortness of breath. HISTORY OF PRESENT ILLNESS: A 76-year-old female with a history of coronary artery disease and prev ious lung cancer, status post partial right lobectomy, who presented to the hospital on 02/05/2017 w ith nausea and vomiting, was treated for dehydration, kept off her beta delisa for bradycardia, and discharged home. The patient reports doing quite well post disposition with resolution of her naus ea, maintenance of her fluid status at home with oral intake, and then approximately 48 hours ago, d eveloped a cough with subjective chills and fevers. Patient notes that she has a son who was hospit alized with pneumonia and she believes that she contracted the same illness. The patient endorses a severe cough, only mildly productive of sputum, no hemoptysis, and associated shortness of breath. She denies any chest pain, pleuritic chest pain, any nausea or vomiting, any diarrhea, myalgias, ar thralgias, or rashes. PAST MEDICAL HISTORY: 1. Coronary artery disease, status post CABG. 2. AAA, medically monitored. 3. History of lung cancer, status post partial right lobectomy. 4. Peripheral vascular disease. 5. Hypertension. 6. Hyperlipidemia. SOCIAL HISTORY: Negative for tobacco. Very rare alcohol. No illicit drugs or marijuana. ADVANCED DIRECTIVES: The patient is full cor, full tube. Her and daughter would be her med ical decision makers. FAMILY HISTORY: Negative for lung cancer. REVIEW OF SYSTEMS: A 10-point review of systems is negative with the exception of that reported in the HPI. PHYSICAL EXAMINATION: VITAL SIGNS: Blood pressure today is 93/38, heart rate 110, respiratory rate 16, 95% on 2 L, 37.0. GENERAL: This is a very pleasant-appearing female who is exhausted, resting in bed. HEENT: Notable for moist mucous membranes. Eyes: Negative for any icterus. CARDIAC: P atient is tachycardic, but regular. PULMONARY: She has good respiratory effort. Hear crackles at the left lung base. Diminished breath sounds at the right base. GASTROINTESTINAL: Positive bowel sounds. ABDOMEN: Soft and nontender. MUSCULOSKELETAL: Negative for any lower extremity edema. S KIN: Negative for any rashes. NEUROLOGIC: She is alert and oriented x3. PSYCHIATRIC: She is ple asant and cooperative on interview and examination. DATA: Chest x-ray, which I personally reviewed and interpreted, shows a potential evolving left low er lobe infiltrate. Do see postoperative changes consistent with her partial lobectomy on the right . LABORATORY: White count 7.7, hematocrit 39.9, platelets of 318, creatinine is 0.7, BUN 12. Troponi n less than 0.012. ASSESSMENT AND PLAN: This is a 76-year-old female with a history of coronary artery disease present ing with cough. 1. Community-acquired pneumonia. Patient did have a sick contact in the home. She is unclear what the pathogen of her son's pneumonia was. We will empirically treat with ceftriaxone, azithromycin, check for influenza. I have sent blood cultures from the emergency department. We will send sputu m cultures from the floor and follow patient clinically. Have written for Mucinex, as well as inhal ed medications to assist with mucus clearance. 2. Tachycardia. Again, suspect this is related to her acute infection. Patient received IV fluids in the emergency department. If she is able to take good oral intake, I do not think she needs mor e. Of note, she historically has bradycardia and has been taken off her atenolol recently. We will continue to monitor while inpatient. 3. Coronary artery disease. Patient is not complaining of chest pain. We will continue her home c ardiac medications once reconciled, holding her antihypertensives until we see her blood pressures n ormalize. 4. Acute hypoxic respiratory failure secondary to community-acquired pneumonia. We will treat with antibiotics, inhaled medications, and Mucinex and follow clinically. 5. Prophylaxis with Lovenox. 6. Diet: Cardiac. 7. Disposition: I expect greater than 2 midnights as the patient is presenting with community-acqu ired pneumonia requiring oxygen supplementation and IV antibiotics. 8. I have discussed the case with the emergency room physician. Patient will be triaged to the [facility] floor for care. /[id number]/MODL
[2017-02-15] MEDS: guaiFENesin 600 MG TAB.ER PO SCH ×2 (08:17→21:25)
[2017-02-15] MEDS ORDERED: ENOXAPARIN 40 MG/0.4 ML SYR SC SCH (09:00)
[2017-02-15 11:48] LABS: COLOR YELLOW; LEUKOCYTE ESTERASE,URINE 2+ (NEGATIVE); NITRITE,URINE NEGATIVE (NEGATIVE)
--- NOTE | 2017-02-15 11:52 | HOSPPROG ---
Hospitalist Progress Note Assessment/Plan: # CAP - cont rocephin and azith - sputum cx pending # sepsis d/t CAP - resolved # CAD s/p CABG - cont asa/statin # a-fib: NSR now; cont eliquis, hold atenolol today, restart as soon as BP will tolerate # htn - holding meds today # lung ca s/p resection 2001 Subjective: still feels very tired; less coughing today Objective: Vital Signs Temp Pulse Resp BP Pulse Ox 37.0 C 64 18 106/46 L 95 02/15/17 07:07 02/15/17 10:35 02/15/17 10:35 02/15/17 08:00 02/15/17 10:35 02/14/17 02/15/17 02/16/17 05:59 05:59 05:59 Intake Total 1600 150 Output Total 250 Balance 1600 -100 PT 13.7 SEC (12.0-15.0) 02/15/17 02:44 INR 1.06 (0.83-1.16) 02/15/17 02:44 35 mins (from 11:17am to 11:52am) direct patient care and face to face time - Physical Exam Constitutional: no apparent distress, appears nourished ICD10 Worksheet Patient Problems: Problems Problem Status Onset Hypoxia Acute Pneumonia Acute Sepsis Acute CAD (coronary artery disease) Acute Dehydration Acute Emesis Acute Generalized weakness Acute Vomiting Acute
[2017-02-15 11:56] LABS: BACTERIA TRACE /hpf (NONE SEEN); MUCUS TRACE /lpf (NONE-1+); WBC,URINE 50-182 /hpf (0-3)
[2017-02-15] MEDS: ATORVASTATIN CALCIUM 40 MG TAB PO SCH (18:09)
[2017-02-15] MEDS: ASPIRIN 81 MG CHEWABLE TAB PO SCH (18:09)
[2017-02-15] MEDS: APIXABAN 5 MG TAB PO SCH (21:24)
[2017-02-16] MEDS: AZITHROMYCIN IV 500 MG in D5W 250 ML IV SCH (04:37)
[2017-02-16] MEDS: IPRATROPIUM/ALBUTEROL 3 ML DEYVIAL IH SCH ×4 (05:25→21:58)
[2017-02-16 05:32] LABS: % IMMATURE GRANULYOCYTES 1.1 % (0.0-1.1); ABSOLUTE IMMATURE GRANULOCYTES 0.09 10^3/uL (0.00-0.10); ADD DIFF? NO; ADD MORPH? NO; ADD SCAN? YES; ATYPICAL LYMPHOCYTE FLAG 0 (0-99); FRAGMENT RBC FLAG 0 (0-99); HEMATOCRIT 30.3 % (38.0-47.0); HEMOGLOBIN 9.9 g/dL (12.6-16.3); LIPEMIA HEMOLYSIS FLAG 80 (0-99); MEAN CELL HEMOGLOBIN 31.9 pg (27.9-34.1); MEAN CELL HEMOGLOBIN CONCENTR. 32.7 g/dL (32.4-36.7); MEAN CELL VOLUME 97.7 fL (81.5-99.8); MEAN PLATELET VOLUME 8.9 fL (8.7-11.7); PLATELET CLUMPS FLAG 10 (0-99); PLATELET COUNT 223 10^3/uL (150-400); RED CELL DISTRIBUTION WIDTH 13.5 % (11.5-15.2)
[2017-02-16 05:48] LABS: LEFT SHIFT FLG 150 (0-99)
[2017-02-16 06:20] LABS: SCAN NEGATIVE
[2017-02-16] MEDS: APIXABAN 5 MG TAB PO SCH ×2 (07:23→21:20)
[2017-02-16] MEDS: RALOXIFENE HCL 60 MG TAB PO SCH (07:23)
[2017-02-16] MEDS: guaiFENesin 600 MG TAB.ER PO SCH ×2 (07:23→21:20)
[2017-02-16] MEDS: POTASSIUM CL 20 MEQ TAB PO SCH (07:24)
[2017-02-16] MEDS ORDERED: NON-FORMULARY NEW DRUG (Atenolol/Chlorthalidone [Atenolol-Chlorthalidone 50-25] 1 EACH) PO SCH (09:00)
[2017-02-16] MEDS ORDERED: LOSARTAN POTASSIUM 50 MG TAB PO SCH (09:00)
[2017-02-16] MEDS ORDERED: ATENOLOL 50 MG TAB PO SCH (09:00)
[2017-02-16] MEDS ORDERED: CHLORTHALIDONE 25 MG TAB PO SCH (09:00)
--- NOTE | 2017-02-16 10:53 | HOSPPROG ---
Hospitalist Progress Note Assessment/Plan: # hypotension - will bolus with 1L; no evidence of shock at this point # CAP - cont rocephin and azith - sputum GS with GPC chains - check CXR tomorrow # sepsis d/t CAP - resolved # CAD s/p CABG - cont asa/statin # a-fib: back in a-fib - need to hold BB - cont eliquis # htn - holding meds today (received losartan this am) # anemia - worse today, recheck tomorrow # lung ca s/p resection 2001 Subjective: breathing feels better; stronger today Objective: Vital Signs Temp Pulse Resp BP Pulse Ox 36.3 C 85 16 88/41 L 88 L 02/16/17 08:00 02/16/17 08:00 02/16/17 08:00 02/16/17 10:45 02/16/17 08:06 Microbiology 02/15/17 11:20 - Final Sputum, Expectorated Laboratory Results 02/16/17 05:18 02/15/17 02/16/17 02/17/17 05:59 05:59 05:59 Intake Total 1600 750 Output Total 1230 Balance 1600 -480 PT 13.7 SEC (12.0-15.0) 02/15/17 02:44 INR 1.06 (0.83-1.16) 02/15/17 02:44 tele personally reviewed - Physical Exam Constitutional: no apparent distress, appears nourished Cardiovascular: no murmur, rub, or gallop, irregularly irregular Respiratory: no rales or rhonchi, respiratory distress (mild), other ( diminished R base sounds), No expiratory wheeze Gastrointestinal: normoactive bowel sounds, soft, non-tender abdomen, no palpable masses ICD10 Worksheet Patient Problems: Problems Problem Status Onset Chronic Disease Mgmt/Transitional Care Acute Emesis Acute CAD (coronary artery disease) Acute Dehydration Acute Vomiting Acute Generalized weakness Acute Pneumonia Acute Sepsis Acute Hypoxia Acute
[2017-02-16] MEDS: ATORVASTATIN CALCIUM 40 MG TAB PO SCH (17:36)
[2017-02-16] MEDS: ASPIRIN 81 MG CHEWABLE TAB PO SCH (17:36)
[2017-02-17 04:55] LABS: % IMMATURE GRANULYOCYTES 0.4 % (0.0-1.1); ABSOLUTE IMMATURE GRANULOCYTES 0.03 10^3/uL (0.00-0.10); ADD DIFF? NO; ADD MORPH? NO; ADD SCAN? NO; ATYPICAL LYMPHOCYTE FLAG 0 (0-99); FRAGMENT RBC FLAG 0 (0-99); HEMATOCRIT 34.5 % (38.0-47.0); HEMOGLOBIN 11.2 g/dL (12.6-16.3); LEFT SHIFT FLG 20 (0-99); LIPEMIA HEMOLYSIS FLAG 80 (0-99); MEAN CELL HEMOGLOBIN 31.7 pg (27.9-34.1); MEAN CELL HEMOGLOBIN CONCENTR. 32.5 g/dL (32.4-36.7); MEAN CELL VOLUME 97.7 fL (81.5-99.8); PLATELET CLUMPS FLAG 0 (0-99); PLATELET COUNT 254 10^3/uL (150-400); RED BLOOD CELL COUNT 3.53 10^6/uL (4.18-5.33); RED CELL DISTRIBUTION WIDTH 13.5 % (11.5-15.2)
[2017-02-17] MEDS: IPRATROPIUM/ALBUTEROL 3 ML DEYVIAL IH SCH ×4 (05:30→21:01)
[2017-02-17 06:27] LABS: ANION GAP 7 mEq/L (8-16); CALCIUM 8.4 mg/dL (8.5-10.4); CARBON DIOXIDE 26 mEq/l (22-31); CHLORIDE 102 mEq/L (97-110); CREATININE 0.6 mg/dL (0.6-1.0); GLOMERULAR FILTRATION RATE > 60; GLUCOSE 94 mg/dL (70-100); POTASSIUM 3.7 mEq/L (3.5-5.2); SODIUM 135 mEq/L (134-144)
--- NOTE | 2017-02-17 09:44 | HOSPPROG ---
Hospitalist Progress Note Assessment/Plan: 76-year-old female with a history of lung cancer presents with community- acquired pneumonia. Course complicated by rapid AFib today. Course also complicated by new rash today. Worsening right base consolidation likely represents pneumonia, could possibly represent asymmetric pulmonary edema as well. # CAP - change to levaquin (to cover CAP), and clinda (to cover possible aspiration given worsening of pna on CXR) - sputum GS with GPC chains - check resp pcr - check CT today given hx lung cancer and worsening pna # new rash - change abx as above, follow # a-fib with RVR today - rate much faster today - possible tachy-pola syndrome - cont eliquis - cards consult - small dose of iv dilt - check echo # sepsis d/t CAP - resolved # CAD s/p CABG - cont asa/statin # htn - holding meds today (received losartan this am) # anemia - stable today # lung ca s/p resection 2001 Subjective: new rash today; also in rapid a-fib; breathing feels the same as yesterday; ongoing cough Objective: Vital Signs Temp Pulse Resp BP Pulse Ox 36.8 C 138 H 27 H 121/59 H 1 L 02/17/17 08:00 02/17/17 08:15 02/17/17 08:00 02/17/17 08:15 02/17/17 08:15 Microbiology 02/15/17 11:20 - Final Sputum, Expectorated Laboratory Results 02/17/17 04:26 02/17/17 04:26 02/16/17 02/17/17 02/18/17 05:59 05:59 05:59 Intake Total 750 870 Output Total 1230 300 400 Balance -480 570 -400 PT 13.7 SEC (12.0-15.0) 02/15/17 02:44 INR 1.06 (0.83-1.16) 02/15/17 02:44 CXR personally reviewed discussed with Ghassan - cards will c/s tele personally reviewed - rapid a-fib - Physical Exam Constitutional: no apparent distress, appears nourished Cardiovascular: no murmur, rub, or gallop, irregularly irregular, tachycardia Respiratory: no respiratory distress, no rales or rhonchi, clear to auscultation Gastrointestinal: normoactive bowel sounds, soft, non-tender abdomen, no palpable masses ICD10 Worksheet Patient Problems: Problems Problem Status Onset Chronic Disease Mgmt/Transitional Care Acute Emesis Acute CAD (coronary artery disease) Acute Dehydration Acute Vomiting Acute Generalized weakness Acute Pneumonia Acute Sepsis Acute Hypoxia Acute
[2017-02-17] MEDS ORDERED: DILTIAZEM 25 MG/5 ML VIAL IVP ONE (09:45)
[2017-02-17] MEDS: APIXABAN 5 MG TAB PO SCH ×2 (10:01→21:55)
[2017-02-17] MEDS: POTASSIUM CL 20 MEQ TAB PO SCH (10:01)
[2017-02-17] MEDS: RALOXIFENE HCL 60 MG TAB PO SCH (10:01)
[2017-02-17] MEDS: guaiFENesin 600 MG TAB.ER PO SCH ×2 (10:02→21:56)
[2017-02-17] MEDS: AZITHROMYCIN IV 500 MG in D5W 250 ML IV SCH (10:22)
--- NOTE | 2017-02-17 11:54 | ECHO ---
[id number] + + [address] : : [place] [address] : : [phone] + + Adult Echocardiographic Report + --------+ :Name: VIN FLORES CStudy Date: 02/17/2017 10:20 AM : : Hospital Admission Number: [id number] Locat ion: 222: :: 1940 Gender: Female Height: 63 in : :Age: 76 yrs Race: WH Weight: 121 l b : :Reason For Study: Eval LV Fx : : BSA: 1.6 mete rs2 : :History: Hx of CABG, New onset of Atrial fibrillation. : + --------+ MMode/2D Measurements \T\ Calculations IVSd: 0.67 cm LVIDd: 2.7 cm FS: 32.7 % Ao root diam: 2.0 cm LVPWd: 0.75 cm LVIDs: 1.8 cm EDV(Teich): 27.8 ml ACS: 1.2 cm ESV(Teich): 10.3 ml EF(Teich): 63.0 % Normal Measurement Values: + + :LVIDd (3.5-5.7cm) IVSd (0.6-1.1cm) LVPWd (0.6-1.1cm) Aortic Root (2.0-3.7cm)Left Atrium (1.5-4.0cm): :LV Vol(d) (76-115ml) LV Vol(s) (29-48ml) Ejec Fraction (50-65%)PV [place] (0.6- 1.2m/s) TV [place] (0.4-1.0m/s) : :MV E [place] (0.8-1.0m/s)MV A [place] (0.3-1.0m/s)LVOT [place] (0.7-1.2m/s) Asc Ao [place] ( 0.9-1.8m/s) : + + Doppler Measurements \T\ Calculations MV E max chico: Ao V2 max: AI max chico: LV V1 max: 100.7 cm/sec 141.2 cm/sec 317.6 cm/sec 102.2 cm/sec MV A max chico: Ao max PG: AI max P.4 mmHgLV V1 max P.4 cm/sec 8.0 mmHg AI dec slope: 4.2 mmHg MV E/A: 1.1 143.0 cm/sec2 AI P1/2t: 650.7 msec PA V2 max: 105.9 cm/sec PA max P.5 mmHg Left Ventricle The left ventricle is normal in size. There is mild concentric left ventricular hypertrophy. The left ventricular ejection fraction is normal. There is Doppler evidence for diastolic dysfunction. The rhythm is atrial fibrillation. Right Ventricle The right ventricle is normal size. Atria The left atrial size is normal. Right atrial size is normal. Mitral Valve There is mild mitral annular calcification. There is no mitral valve stenosis. There is trace mitral regurgitation. Tricuspid Valve Normal tricuspid valve. There is trace tricuspid regurgitation. Aortic Valve There is mild aortic valve calcification. There is no aortic stenosis. Mild aortic regurgitation. Pulmonic Valve The pulmonic valve is normal in structure and function. There is no pulmonic valvular regurgitation. Great Vessels The aortic root is normal size. Pericardium/Pleural There is no pericardial effusion. Conclusion A complete two-dimensional transthoracic echocardiogram was performed (2D, M-mode, Doppler and color flow Doppler). There is mild concentric left ventricular hypertrophy. The left ventricular ejection fraction is normal. There is Doppler evidence for diastolic dysfunction. The rhythm is atrial fibrillation. The right ventricle is normal size. The left atrial size is normal. There is mild mitral annular calcification. There is trace mitral regurgitation. There is trace tricuspid regurgitation. There is mild aortic valve calcification. Mild aortic regurgitation. The pulmonic valve is normal in structure and function. There is no pericardial effusion. Final Reading Physician: Daniel Hooker, Melectronically signed on 02/17/2017 11:52 AM Ordering Physician: Celestine Kilpatrick Performed By: Romero Olguin, RUSSELLCS
[2017-02-17] MEDS: METOPROLOL TARTRATE 25 MG TAB PO SCH ×2 (12:02→21:55)
--- NOTE | 2017-02-17 12:14 | CPIP ---
[f rep st] INVASIVE CARDIAC PROCEDURE This patient is a 76-year-old lady who is in the hospital and they have asked me to help to manage h er atrial fibrillation. She is a min[place] lady who was in the hospital after being very, very sick the first middle week of , so she had been sick at home for 7 days and came into the hospital on 02/05/2017 with a diagnosis of nausea, vomiting, dehydration. She was hydrated and she was subsequently sent home. She has fa kendra members who have had pneumonia and she has now come into the hospital 02/16 complaining of feel ing tired and weak. She has had a cough. She said she has had no change in any shortness of breath . She has had no chest pain. She says she maybe had a fever but she really did not think she had a fever and she has had no chill s or rigors. She has not had rashes. She has not had a sore throat, or upper respiratory tract inf ection symptoms. She has not been producing sputum. I have talked to her very carefully and he says that she is not sitting around much and she tells me she had not been sitting around much. She had been very active despite being in the hospit al and feeling poorly. She does not have any pleuritic chest pain. She has no history of rheumatic disease, claudication or cerebrovascular disease. She has no hemoptysis, tuberculosis. She has no significant peripheral edema. She has no early sat iety or increased abdominal girth. She has not had trauma. She has been taking her medications. She does not have any history of bleeding either per rectum, vomiting blood or losing blood any othe r way. She has peripheral vascular disease with a history of an abdominal aortic aneurysm and was last stud ied a year ago. She has a history of atrial fibrillation and takes Eliquis and does not miss any do ses. She has coronary artery bypass grafting. She had lung cancer. In 1999 rightfully, did her bypass surgery. She had never had a myocardial infarctio n. Then 6 months later he did the lobectomy for lung cancer. Cardiac risk factors are positive for hypertension, dyslipidemia and history of smoking. Cardiac risk factors are negative for diabetes, known myocardial infarction, recent smoking history, hyperuricemia or obesity. PAST MEDICAL HISTORY: She has no family history of premature coronary disease. REVIEW OF SYSTEMS: A 12-point review of systems is negative except as noted above and in this recor d. FAMILY HISTORY: There is no family history of premature coronary disease. No history of unexplaine d sudden at a young age. ALLERGIES: None. MEDICATIONS AT HOME: 1. Vitamin C. 2. Aspirin. 3. Lipitor. 4. Vitamin D. 5. Losartan. 6. Evista. 7. Aleve. 8. Zofran. 9. She also takes Eliquis at home and has not been missing her doses. SOCIAL HISTORY: She was born in the [place] town [place], [place]. She shortly thereafter move d to a small town in [place] outside [place] called [place]. She was raised there. 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 She has been in [place] for 15 years. She lives with her and now she an d her have moved into their daughter's house. This is somewhat stressful for her. She does not smoke. She does not drink significant amount of alcohol. She has smoked in the past. PHYSICAL EXAMINATION: VITAL SIGNS: Heart rate is 136, blood pressure is 125/77, respiratory rate i s 14. She is afebrile. NECK: Supple. CARDIOVASCULAR: S1, S2. Soft systolic murmur left sternal border. Irregularly irregular heart rate. No S3, S4. No rubs. PULMONARY: Rhonchi bilaterally, dullness at both bases and prolonged expiration. ABDOMEN: Soft, nontender, without masses. CVA: No tenderness. EXTREMITIES: No significant edema. No pain. Negative Homans' sign. PSYCH: No ob vious anxiety or depression. SKIN: Age-related changes. NEURO: She is alert, cooperative. Her m [place] does not seem to be the best. LABORATORY DATA: Chest x-ray has worsening consolidation and decreased lung volumes especially on t he right side. She has significant anemia with hematocrit of 34. Her white count is 7.2 when she c omes in but with 91 neutrophils. White count has stayed in that general range, went to 8.4 and now is down to 6.79. BNP is 700+. Sodium 139, potassium 3.6, chloride 100, CO2 of 27, BUN 20, creatinine 0.7, glucose 133. EKG shows, when she came in, sinus tachycardia. Diffuse nonspecific ST-T changes. Deep S waves in V2 and V3 with nonspecific repolarization changes. ASSESSMENT AND PLAN: 1. Coronary artery bypass grafting. 2. Dyslipidemia. 3. Hyperlipidemia. 4. Abdominal aortic aneurysm. 5. Lung cancer. 6. Abnormal chest x-ray. 7. Possible pneumonia. 8. Anemia. 9. Stress. 10. History of nausea, vomiting and diarrhea. The patient is admitted to the hospital now with what looks like pneumonia or certainly a pulmonary process. It is not acute congestive heart failure. Could she have a recurrence of lung cancer? Could she have pulmonary embolism even though she is on Eliquis? Could she just have a viral infection? Or hypersensitivity reaction. Her chest x-ray is worsening and she is going to get a CT scan of the chest. She has a known abdomi nal aortic aneurysm and has had some GI complaints and we will do a CT scan of the abdominal aorta w [facility] she is overdue for at this point. She has significant problems with hypertension and lipids an d blood sugar abnormalities although she has not been classified as diabetic yet, according to her. I have talked with her about prevention and she has not been able to exercise or do much recently bu t will work on that. She has a longstanding atrial fibrillation and in the past was sent home without beta blockers becau se of her bradycardias that she used to get. At this point in time, heart rate is up to 138 and fidel l start her back on a beta delisa, and watch her carefully. If she develops or documents sick sinu s syndrome, we will proceed with a pacemaker. We will follow her closely with you. I do not think we have to do a D-dimer because she is on Eliquis. She has no good story for pulmona ry embolism. She has no DVTs. Despite all that she could still have a pulmonary embolism but the s tory really is not good for it, and so we will just watch and see what develops. At this time, she is going to continue her medications, continue her Eliquis and we will try to impr ove rate control. I spoke with the hospital service about her. /[id number]/MODL
[2017-02-17] MEDS ORDERED: IOPAMIDOL (ISOVUE 370) 100 ML BTL IV ONE (13:07)
[2017-02-17] MEDS: CLINDAMYCIN 600 MG/DEXTROSE 50 ML IV SCH ×2 (13:49→21:56)
[2017-02-17] MEDS: ATORVASTATIN CALCIUM 40 MG TAB PO SCH (18:34)
[2017-02-17] MEDS: ASPIRIN 81 MG CHEWABLE TAB PO SCH (18:35)
[2017-02-18] MEDS: IPRATROPIUM/ALBUTEROL 3 ML DEYVIAL IH SCH ×2 (06:26→10:23)
[2017-02-18] MEDS: CLINDAMYCIN 600 MG/DEXTROSE 50 ML IV SCH ×2 (06:31→14:12)
[2017-02-18 07:53] LABS: % IMMATURE GRANULYOCYTES 0.6 % (0.0-1.1); ABSOLUTE IMMATURE GRANULOCYTES 0.04 10^3/uL (0.00-0.10); ADD DIFF? NO; ADD MORPH? NO; ADD SCAN? NO; ATYPICAL LYMPHOCYTE FLAG 0 (0-99); FRAGMENT RBC FLAG 0 (0-99); HEMOGLOBIN 11.3 g/dL (12.6-16.3); LEFT SHIFT FLG 60 (0-99); LIPEMIA HEMOLYSIS FLAG 80 (0-99); MEAN CELL HEMOGLOBIN 31.3 pg (27.9-34.1); MEAN CELL HEMOGLOBIN CONCENTR. 32.3 g/dL (32.4-36.7); MEAN PLATELET VOLUME 8.8 fL (8.7-11.7); PLATELET CLUMPS FLAG 0 (0-99); PLATELET COUNT 288 10^3/uL (150-400); RED BLOOD CELL COUNT 3.61 10^6/uL (4.18-5.33); RED CELL DISTRIBUTION WIDTH 13.2 % (11.5-15.2)
[2017-02-18 08:11] LABS: ALANINE AMINOTRANSFERASE 33 IU/L (9-52); ALBUMIN 2.7 g/dL (3.5-5.0); ALKALINE PHOSPHATASE 46 IU/L (38-126); ANION GAP 5 mEq/L (8-16); ASPARTATE AMINOTRANSFERASE 24 IU/L (14-46); BILIRUBIN,TOTAL 0.8 mg/dL (0.1-1.4); CALCIUM 8.3 mg/dL (8.5-10.4); CARBON DIOXIDE 27 mEq/l (22-31); CHLORIDE 101 mEq/L (97-110); CREATININE 0.7 mg/dL (0.6-1.0); GLOMERULAR FILTRATION RATE > 60; GLUCOSE 88 mg/dL (70-100); POTASSIUM 3.8 mEq/L (3.5-5.2); SODIUM 133 mEq/L (134-144); TOTAL PROTEIN 4.8 g/dL (6.3-8.2)
[2017-02-18] MEDS: POTASSIUM CL 20 MEQ TAB PO SCH (08:40)
[2017-02-18] MEDS: APIXABAN 5 MG TAB PO SCH (08:40)
[2017-02-18] MEDS: guaiFENesin 600 MG TAB.ER PO SCH (08:40)
[2017-02-18] MEDS: METOPROLOL TARTRATE 25 MG TAB PO SCH (08:40)
[2017-02-18] MEDS: RALOXIFENE HCL 60 MG TAB PO SCH (08:40)
[2017-02-18 10:35] VITALS: RESP 16
[2017-02-18 11:42] VITALS: BP 110/45; PULSE 89; TEMP 98.2; O2SAT 90
--- NOTE | 2017-02-18 17:57 | GDS ---
[f rep st] DISCHARGE SUMMARY DISCHARGE DIAGNOSES: 1. Acute community-acquired pneumonia. 2. Atrial fibrillation with rapid ventricular response. 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 3. Sepsis, secondary to community-acquired pneumonia. 4. Coronary artery disease, status post CABG. 5. Hypertension. 6. Chronic normocytic anemia. 7. History of lung cancer, status post right lung resection in 2001. 8. Abdominal aortic aneurysm, monitored radiographically. HISTORY OF PRESENT ILLNESS: A 76-year-old female presenting with complaints of cough and shortness of breath. For details of patient's initial presentation, please see the History and Physical dated 02/15/2017. CONSULTATIVE SERVICES: Cardiology. PROCEDURES: 02/17/2017, patient had a transthoracic echocardiogram that showed normal left ventricu lar ejection fraction, with mild concentric hypertrophy. 02/17/2017, patient had a CTA of the abdomen that showed stable AAA. HOSPITAL COURSE BY ISSUE: 1. Community-acquired pneumonia. Patient had a respiratory viral panel sent, which confirmed rhino virus. However, the patient did have a progressive infiltrate on chest x-ray. After discussion wit h Infectious Disease, it was felt that treatment for her secondary bacterial pneumonia would be appr opriate, as rhinovirus should not cause infiltrates on chest x-ray. The patient will complete a cou rse of antibiotics with oral levofloxacin post discharge, and follow in the outpatient setting with her primary care provider. 2. 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 Patient had a previous hospitalization that was thought to be p otentially symptomatic bradycardia. Was taken off her long-term atenolol dosing, and then developed rapid AFib. She is being re-initiated on b.i.d. metoprolol and anticoagulant. Will follow with a curtain cutter, for what we suspect will be placement of a pacemaker. 3. Coronary artery disease. Patient remained stable during the stay. She will be continued on her medications at discharge. 4. AAA. The patient had stable radiographic appearance of this, and will continue to be monitored. MEDICATIONS AT THE TIME OF TRANSFER: Please reference med rec printed on 02/18/2017. PENDING STUDIES: At the time of this dictation, include blood cultures drawn 02/15/2017, which are pending, no growth to date. FOLLOWUP APPOINTMENTS: 1. With Cardiology in the next 1-2 weeks, for her first post disposition followup and decisions rel ated to pacemaker placement. 2. With her primary care provider, for ongoing management of her medical comorbidities. I spent greater than 30 minutes in the planning and coordination of this discharge. /[id number]/MODL
== END 2017-02-18 14:10 | disposition home or self-care (01) | DRG 871 ==
LOC: EDUNIT# → F2W 04:56
PROVIDERS: ADMIT Hospitalist; ATTEND Hospitalist
DX: A41.9 Sepsis, unspecified organism (principal); J18.8 Other pneumonia, unspecified organism; I48.91 Unspecified atrial fibrillation; I10 Essential (primary) hypertension; D64.9 Anemia, unspecified; I71.4 Abdominal aortic aneurysm, without rupture; Z95.1 Presence of aortocoronary bypass graft; Z85.118 Personal history of other malignant neoplasm of bronchus and lung; B34.8 Other viral infections of unspecified site
CPT/HCPCS: 97116-GP; 97161-GP; 97165-GO; 97530-GO; 97530-GP; G8978-GP-CI; G8979-GP-CI; G8980-GP-CI; G8987-GO-CI; G8988-GO-CI; J0456; J0696; J1650; J1956; Q9967

== ENCOUNTER → 2017-03-28 | Outpatient (CLI) | payer OTHER | LOC: BHFA 09:00 | PROVIDERS: ATTEND Internal Medicine Cardiovascular Disease | DX: I25.810 Atherosclerosis of coronary artery bypass graft(s) without angina pectoris (principal); I48.0 Paroxysmal atrial fibrillation; I71.4 Abdominal aortic aneurysm, without rupture; J44.9 Chronic obstructive pulmonary disease, unspecified; E78.00 Pure hypercholesterolemia, unspecified; I10 Essential (primary) hypertension ==

== ENCOUNTER → 2018-03-23 | Outpatient (CLI) | payer OTHER ==
[~2018-03-23] MED LIST: IOPAMIDOL (ISOVUE 370) 100 ML BTL IV ONE
== END ==
LOC: CIMAGING 12:52
PROVIDERS: ATTEND Internal Medicine Cardiovascular Disease
DX: I71.4 Abdominal aortic aneurysm, without rupture (principal); I25.10 Atherosclerotic heart disease of native coronary artery without angina pectoris; K80.20 Calculus of gallbladder without cholecystitis without obstruction; M51.37 Other intervertebral disc degeneration, lumbosacral region; K59.00 Constipation, unspecified
CPT/HCPCS: 74175; Q9967; 82565-PO